=== PATIENT | male | born 1995 | race Caucasian/White ===

== ENCOUNTER → 2017-07-26 | Outpatient (CLI) | payer BC ==
[~2017-07-26] MED LIST: BUPR-472 PO; CYCL10TA29 PO; NAPR500T31 PO; VENL150C61 PO
--- NOTE | 2017-07-26 11:17 | RADIOLOGY IMAGING REPORT ---
FACILITY: [facility] - [place] PATIENT NAME: Cristy Mejia : 1995 MR: [id number] V: [id number] EXAM DATE: [id number] ORDERING PHYSICIAN: JAMES MCLEAN TECHNOLOGIST: Location: [facility] - [place] Patient: Cristy Mejia : 1995 Visit/Account:[id number] Date of Sevice: 07/26/2017 Exam type: CERVICAL SPINE MIN 4 VIEW History: Chronic neck pain Comparison: None. Findings: C1-C7 are seen in gross anatomic alignment without evidence of acute fractures or subluxations. Smal l anterior osteophytes project from the superior endplate of C6. There is mild disc space narrowing at C5-6. There is mild foraminal narrowing on the right at C6-7 and on the left C5-6. There is no e vidence of prevertebral soft tissue swelling IMPRESSION: 1. Mild spondylotic changes lower cervical spine as detailed above Report Dictated By: Anuradha Lilly MD at 07/26/2017 11:11 AM Report E-Signed By: Anuradha Lilly MD at 07/26/2017 11:13 AM WSN:[email or web address]
== END ==
LOC: RAD 09:40
PROVIDERS: ATTEND Nurse Practitioner Primary Care
DX: M47.892 Other spondylosis, cervical region (principal)
CPT/HCPCS: 72050

== ENCOUNTER → 2017-08-18 | Outpatient (CLI) | payer BC | LOC: LAB 13:46 | PROVIDERS: ATTEND Nurse Practitioner Primary Care | DX: M54.2 Cervicalgia (principal); K21.9 Gastro-esophageal reflux disease without esophagitis | CPT/HCPCS: 36415; 85651; 86140; 86200; 86430 ==

== ENCOUNTER 2018-09-10 02:01 | Emergency (ER) | payer BC ==
[~2018-09-10 02:01] MED LIST changes: +MELO-207 PO; +TRAM-420 PO
--- NOTE | 2018-09-10 02:04 | ER Report ---
History and Physical Time Seen By MD: 02:04 HPI/ROS CHIEF COMPLAINT: Fell on stairs HISTORY OF PRESENT ILLNESS: 23-year-old male ambulating downstairs, missed the last step and fell, rolling his right ankle. Complaining of pain on the top of his foot and the anterior ankle. She denies head impact, neck pain, chest pain, shortness of breath. Patient denies any other injuries. Patient has abrasion on his left elbow from several days ago. It did not occur with this fall. Allergies: Coded Allergies: No Known Drug Allergies (Unverified , 09/10/18) Home Meds Active Scripts Meloxicam (MELOXICAM) 15 Mg Tablet, 15 MG PO QDAY PRN for neck pain, #30 TAB 3 Refills Prov:SHANNAN PARIS MD 11/15/17 Reported Medications Quetiapine Fumarate (SEROQUEL) 25 Mg Tablet, 25 MG PO 09/10/18 Venlafaxine Hcl (VENLAFAXINE HCL) 100 Mg Tablet, 100 MG PO BID 09/10/18 Clonidine (CLONIDINE 0.1 MG/DAY) 1 Each Patch.tdwk, 1 EACH TD Q7DAY, PATCH.WK 09/10/18 Discontinued Reported Medications Bupropion Hcl (WELLBUTRIN XL) Unknown Strength Tab.er.24h, PO QDAY, TAB 07/26/17 Venlafaxine Hcl (EFFEXOR XR) Unknown Strength Cap.er.24h, PO QDAY 07/26/17 Reviewed Nurses Notes: Yes Old Medical Records Reviewed: Yes Smoking Status: Current: Every Day Smoker Constitutional Vital Sign - Last 24 Hours 09/10/18 09/10/18 09/10/18 09/10/18 02:01 02:05 02:05 02:30 Temp 98.5 Pulse ??? 100 Resp 18 B/P (MAP) 135/93 135/93 (107) 121/79 (93) Pulse Ox 94 O2 Delivery Room Air 09/10/18 09/10/18 09/10/18 02:31 03:00 03:01 Pulse 94 94 B/P (MAP) 124/80 (95) Pulse Ox 93 91 Physical Exam General appearance: Alert no distress. Respiratory: Chest is non tender, lungs are clear to auscultation. Cardiac: Regular rate and rhythm Extremities: Examination of the right foot reveals a neurovascularly intact foot. There is ecchymosis and soft tissue swelling over the anterior lateral aspect of the ankle joint and foot. No tenderness over the base of the 5th metatarsal. There is good movement of the toes DIFFERENTIAL DIAGNOSIS: After history and physical exam differential diagnosis was considered for sprain, strain, fracture, dislocation, contusion Medical Decision Making EKG/Imaging Imaging X-ray: Three-view his right foot, 3 views, right ankle was obtained. I viewed the images myself on the PACS system. My interpretation of the images is: No obvious fracture. There is a tiny avulsion fracture noted off of the talar neck. The radiologist interpretation had no clinically significant variation from this interpretation. ED Course/Re-evaluation ED Course Patient was admitted to an examination room. H&P was done. The differential diagnoses was considered. On conical examination. Patient has significant anterior lateral ankle pain and tenderness with ecchymosis. Diagnostic x-rays are performed. There is a tiny avulsion fracture noted. Patient's placed in Grayson wrap and air splint. He is advised ibuprofen 600 mg 3 times daily. He was offered something stronger for pain but declined. Patient's advised ice packs to the affected area. Follow-up with orthopedics if unimproved in one week. 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 Decision to Disposition Date: Sep 10, 2018 Decision to Disposition Time: 02:54 Depart Departure Latest Vital Signs Vital Signs Date Time Temp Pulse Resp B/P (MAP) Pulse Ox O2 Delivery O2 Flow Rate FiO2 09/10/18 03:01 94 91 09/10/18 03:00 124/80 (95) 09/10/18 02:05 98.5 18 Room Air Impression: Primary Impression: Avulsion fracture of ankle Additional Impression: Foot sprain Condition: Improved Disposition: HOME OR SELF-CARE Referrals: SHANNAN PARIS MD (PCP) Patient Instructions: Avulsion Fracture (ED), Foot Sprain (ED) Additional Instructions: Take ibuprofen 200 mg 3 tablets 3 times a day with food for 3-5 days Apply ice packs for 2-3 days Wear splint for 5 days to 1 week Follow up with orthopedics such as [facility] if unimproved in one week. [phone], address [address] Problem Qualifiers Primary Impression: Avulsion fracture of ankle Encounter type: initial encounter Fracture type: closed Laterality: right Qualified Codes: S82.891A - Other fracture of right lower leg, initial encounter for closed fracture Additional Impression: Foot sprain Encounter type: initial encounter Laterality: right Qualified Codes: S93.601A - Unspecified sprain of right foot, initial encounter ELVIS JACOBS DO Sep 10, 2018 02:04
[2018-09-10] MEDS ORDERED: QUET25TA30 PO (02:14)
[2018-09-10] MEDS ORDERED: VENL100T22 PO (02:14)
[2018-09-10] MEDS ORDERED: CLON1PAT19 TD (02:14)
--- NOTE | 2018-09-10 02:53 | RADIOLOGY IMAGING REPORT ---
FACILITY: [facility] - [place] PATIENT NAME: Cristy Mejia : 1995 MR: [id number] V: [id number] EXAM DATE: ORDERING PHYSICIAN: ELVIS JACOBS TECHNOLOGIST: Location: [facility] - [place] Patient: Cristy Mejia : 1995 Visit/Account:[id number] Date of Sevice: 09/10/2018 ANKLE 3 VIEW MIN RIGHT HISTORY: Fall COMPARISON: None FINDINGS: Tiny ossific density at the dorsal aspect of the talar neck. Otherwise no acute fracture or dislocation. Talar dome is smooth in contour. Bohler angle is well maintained. Base of the 5th metat arsal is intact. IMPRESSION: 1. Tiny ossific density at the dorsal aspect of the talar neck uncertain chronicity although small av ulsion not excluded. Recommend clinical correlation for pain at this site. Report Dictated By: Devonte Altamirano MD at 09/10/2018 2:47 AM Report E-Signed By: Devonte Altamirano MD at 09/10/2018 2:49 AM WSN:[id number]
--- NOTE | 2018-09-10 02:54 | RADIOLOGY IMAGING REPORT ---
FACILITY: [facility] PATIENT NAME: Cristy Mejia : 1995 MR: [id number] V: [id number] EXAM DATE: ORDERING PHYSICIAN: ELVIS JACOBS TECHNOLOGIST: Location: [facility] [place] Patient: Cristy Mejia : 1995 Visit/Account:[id number] Date of Sevice: 09/10/2018 FOOT 3 VIEWS RIGHT HISTORY: fell COMPARISON: None FINDINGS: No evidence of acute fracture or dislocation. Bohler angle is well maintained. Base of the 5th metatarsal is intact. TMT joints are well aligned. IMPRESSION: 1. No acute osseous abnormality. 2. Please see separate ankle report from the same day. Report Dictated By: Devonte Altamirano MD at 09/10/2018 2:49 AM Report E-Signed By: Devonte Altamirano MD at 09/10/2018 2:51 AM WSN:[id number]
[2018-09-10 03:00] VITALS: BP 124/80
== END 2018-09-10 03:12 | disposition home or self-care (01) ==
LOC: ER 02:23
DX: S82.891A Other fracture of right lower leg, initial encounter for closed fracture (principal); S93.601A Unspecified sprain of right foot, initial encounter
CPT/HCPCS: 73610; 73630; 99284; L1930

== ENCOUNTER → 2018-11-13 | Outpatient (CLI) | payer BC ==
[~2018-11-13] MED LIST changes: +CEP125L PO; +CLON1PAT19 TD; +DESV25TA; +ESOM40CA42 PO; +FEXO-72 PO; +OLAN5TAB27 PO; +PROP20TA56 PO; +QUET25TA30 PO; +RANI-54 PO; +VENL100T22 PO
--- NOTE | 2018-11-13 09:04 | RADIOLOGY IMAGING REPORT ---
FACILITY: [facility] PATIENT NAME: Cristy Mejia : 1995 MR: [id number] V: [id number] EXAM DATE: ORDERING PHYSICIAN: ROB EVANS TECHNOLOGIST: Location: [facility] - [place] Patient: Cristy Mejia : 1995 Visit/Account:[id number] Date of Sevice: 11/13/2018 ABDOMEN COMPLETE HISTORY: Mid upper quadrant and left upper quadrant abdominal pain for several months. COMPARISON: None. FINDINGS: Liver: Negative. Gallbladder: Gallbladder is decompressed. There is a focal area of posterior acoustic shadowing with a "comet tail" appearance consistent with adenomyomatosis. Gallbladder wall is normal thickness. T here is no evidence of gallstone. Common duct: Normal, 2.6 mm diameter. Pancreas: Partially obscured by bowel, visualized aspects unremarkable. Spleen: Negative. Kidneys: Right: 11.7 cm in length. There is no mass, hydronephrosis, or calculus. Normal cortical me dullary echotexture is seen. Left: 12.5 cm in length. There is no mass, hydronephrosis, or calculus. Normal marcelo ical medullary echotexture is seen. Upper abdominal aorta and IVC: Patent. IMPRESSION: 1. Benign adenomyomatosis in the gallbladder. 2. Otherwise normal ultrasound abdomen complete. Report Dictated By: Antonio Flood at 11/13/2018 8:51 AM Report E-Signed By: Antonio Flood at 11/13/2018 8:54 AM WSN:[email or web address]
== END ==
LOC: US 00:40
PROVIDERS: ATTEND Physician Assistant
DX: K82.8 Other specified diseases of gallbladder (principal)
CPT/HCPCS: 76700